=== PATIENT | female | born 1950 | race Caucasian/White ===

== ENCOUNTER 2021-05-24 12:42 | Outpatient (CLI) | payer MEDICARE, OTHER ==
[2021-05-24] MEDS ORDERED: ATOR80TA PO (13:27)
[2021-05-24] MEDS ORDERED: ZINC50CA PO (13:27)
[2021-05-24] MEDS ORDERED: CA C1TAB39 PO (13:27)
[2021-05-24] MEDS ORDERED: CHOL10003 PO (13:27)
[2021-05-24] MEDS ORDERED: CHOL4POW3 PO (13:27)
[2021-05-24] MEDS ORDERED: HYDR25TA6 PO (13:27)
[2021-05-24] MEDS ORDERED: ASPI81TA45 PO (13:27)
[2021-05-24 13:47] LABS: CHLORIDE 106 mmol/L (98-107); INTERNATIONAL NORMALIZED RATIO 0.98 (0.93-1.1); PROTHROMBIN TIME 10.5 Seconds (9.6-11.5)
[2021-05-24 14:04] LABS: ALANINE AMINOTRANSFERASE 24 U/L (12-78); ALBUMIN 3.9 g/dL (3.4-5.0); ALKALINE PHOSPHATASE 129 U/L (45-117); ANION GAP 7 mmol/L (5-15); BILIRUBIN,TOTAL 1.2 mg/dL (0.2-1.0); CALCIUM 9.9 mg/dL (8.5-10.1); CREATININE 0.82 mg/dL (0.55-1.02)
[2021-05-24 16:10] LABS: BASOPHILS % (AUTO) 1 % (0-1); EOSINOPHILS % (AUTO) 1 % (1-7); LYMPHOCYTES % (AUTO) 33 % (22-44); MEAN CORPUSCULAR HEMOGLOBIN 29.2 pg (27.0-34.8); MEAN CORPUSCULAR HGB CONC 33.9 g/dL (32.4-35.8); MEAN PLATELET VOLUME 8.7 fL (7.4-10.4); MONOCYTES % (AUTO) 7 % (2-9); NEUTROPHILS % (AUTO) 58 % (42-75); PLATELET COUNT 393 x10^3/uL (130-400); RED BLOOD COUNT 4.81 x10^6/uL (3.82-5.3); RED CELL DISTRIBUTION WIDTH 13.2 % (9.6-15.2)
== END 2021-05-24 23:59 | disposition home or self-care (01) ==
LOC: STAR 12:42 → MERGE 13:00 → STAR 23:59
PROVIDERS: ATTEND Specialist
DX: Z01.818 Encounter for other preprocedural examination (principal); C54.1 Malignant neoplasm of endometrium; Z20.822 Contact with and (suspected) exposure to COVID-19
CPT/HCPCS: 71046; 80053; 85025; 85610; 85730; 86304; 87635; 93005

== ENCOUNTER 2021-05-26 13:10 | Outpatient (CLI) | payer MEDICARE, OTHER ==
[~2021-05-26 13:10] MED LIST: ASPI81TA45 PO; ATOR80TA PO; CA C1TAB39 PO; CHOL10003 PO; CHOL4POW3 PO; HYDR25TA6 PO; ZINC50CA PO
[2021-05-26] MEDS ORDERED: OMNIPAQUE 350 MG/ML, 100ML BOTTLE ONE (15:00)
== END 2021-05-26 23:59 | disposition home or self-care (01) ==
LOC: CFH 13:10
PROVIDERS: ATTEND Specialist
DX: K44.9 Diaphragmatic hernia without obstruction or gangrene (principal); N85.2 Hypertrophy of uterus; K57.32 Diverticulitis of large intestine without perforation or abscess without bleeding; N28.1 Cyst of kidney, acquired; D21.9 Benign neoplasm of connective and other soft tissue, unspecified; N83.292 Other ovarian cyst, left side; N83.291 Other ovarian cyst, right side
CPT/HCPCS: 71260; 74177; Q9967

== ENCOUNTER 2021-05-30 06:56 | Observation (INO) | payer MEDICARE, OTHER ==
[~2021-05-30] VITALS: Ht 160 cm; Wt 68.7 kg
[~2021-05-30 06:56] MED LIST changes: +BUPIVACAINE/PF 0.25% ONE
[2021-05-30] MEDS ORDERED: CHLORHEXIDINE 15 ML UDC ONE (07:23)
[2021-05-30] MEDS ORDERED: LIDOCAINE-MPF 1%, 2ML ONE (07:23)
[2021-05-30] MEDS ORDERED: LACTATED RINGERS 1,000 ML IV SCH (07:30)
[2021-05-30] MEDS ORDERED: CHLORHEXIDINE 15 ML UDC PO ONE (07:30)
[2021-05-30] MEDS ORDERED: CEFOTETAN PMX 2GM/50ML 50 ML IVPB ONE (07:30)
[2021-05-30] MEDS ORDERED: LIDOCAINE-MPF 1%, 2ML INFIL ONE (07:30)
[2021-05-30] MEDS ORDERED: FENTANYL PF 250 MCG/5ML ONE ×2 (10:22→12:07)
[2021-05-30] MEDS ORDERED: PROPOFOL 50 ML ONE (12:35)
[2021-05-30] MEDS ORDERED: INDOCYANINE GREEN 25 MG VIAL ONE (13:27)
[2021-05-30] MEDS ORDERED: HYDROmorphone 1 MG/ML, 1ML INJ IVPush PRN (13:30)
[2021-05-30] MEDS ORDERED: HALOPERIDOL 5 MG/ML IV PRN (13:30)
[2021-05-30] MEDS ORDERED: FENTANYL PF 100 MCG/2ML IV PRN (13:30)
[2021-05-30] MEDS ORDERED: MIDAZOLAM 1 MG/ML, 2ML IV PRN (13:30)
[2021-05-30] MEDS ORDERED: LABETALOL 5MG/ML, 20ML IV PRN (13:30)
[2021-05-30] MEDS ORDERED: ACETAMINOPHEN 325 MG TABLET PO PRN (13:30)
[2021-05-30] MEDS ORDERED: EPHEDRINE 50 MG/ML, 1ML IVPush PRN (13:30)
[2021-05-30] MEDS ORDERED: METHOCARBAMOL 1,000 MG in DEXTROSE 5% 100 ML IV PRN (13:30)
[2021-05-30] MEDS ORDERED: hydrALAzine 20 MG/ML, 1ML IV PRN (13:30)
[2021-05-30] MEDS ORDERED: ONDANSETRON 2MG/ML, 2ML IVPush PRN (13:30)
[2021-05-30] MEDS ORDERED: PROMETHAZINE 25 MG/ML, 1ML IVPush PRN (13:30)
[2021-05-30] MEDS: OXYcodone 5 MG/5 ML ORAL.SOL UDC PO PRN ×2 (14:20→16:11)
[2021-05-30] MEDS ORDERED: OXYcodone 5 MG/5 ML ORAL.SOL UDC ONE (14:20)
[2021-05-30] MEDS ORDERED: ACETAMINOPHEN 650 MG/20.3 ML UDC ONE (14:20)
[2021-05-30 22:37] VITALS: BP 124/61
[2021-05-31 00:20] VITALS: BP 157/65
[2021-05-31] MEDS ORDERED: ONDANSETRON 2MG/ML, 2ML IVPush PRN (01:30)
[2021-05-31] MEDS ORDERED: OXYcodone/APAP 5/325MG TABLET PO PRN (01:30)
[2021-05-31 07:30] VITALS: BP 146/62
[2021-05-31 13:20] VITALS: BP 149/76
== END 2021-05-31 15:36 | disposition home or self-care (01) ==
LOC: OUT 06:56 → MERGE 09:00 → 3N 23:14
PROVIDERS: ADMIT Specialist; ATTEND Specialist
DX: C54.1 Malignant neoplasm of endometrium (principal); G89.18 Other acute postprocedural pain; Z90.710 Acquired absence of both cervix and uterus; Z79.899 Other long term (current) drug therapy
CPT/HCPCS: 36415; 74018; 86850; 86900; 86923; 88112; 88305; 88307; 88309; 88329; 88331; 88333; 88341; 88342; G0378; J2704; J3010; J7120